=== PATIENT | female | born 1995 | race Caucasian/White ===

== ENCOUNTER 2021-12-22 08:54 | Emergency (ER) | payer OTHER, BC ==
[~2021-12-22] VITALS: Ht 160 cm; Wt 59.0 kg
[2021-12-22 09:09] VITALS: BP_SYST 124
--- NOTE | 2021-12-22 09:13 | NUR ---
Patient triaged and placed in waiting room. VSS and patient appears in no acute distress at this time. Accompanied by family, awaiting available bed, and MD notified of need for MSE.
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
--- NOTE | 2021-12-22 10:36 | NUR ---
X-Ray being done at bedside.
--- NOTE | 2021-12-22 10:50 | NUR ---
ER at bedside examining patient.
--- NOTE | 2021-12-22 11:38 | NUR ---
Pt moved to hallway . Pt denies NV, pt c/o 5/10 pain at this time. Pt is laying down bed down, bed up.
[2021-12-22] MEDS ORDERED: IBUPROFEN 800 MG TABLET PO ONE (12:00)
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
[2021-12-22 12:05] VITALS: BP_SYST 124
== END 2021-12-22 12:04 | disposition home or self-care (01) ==
LOC: SED 08:54
DX: S20.211A Contusion of right front wall of thorax, initial encounter (principal); V49.49XA Driver injured in collision with other motor vehicles in traffic accident, initial encounter; Y93.89 Activity, other specified; Y92.89 Other specified places as the place of occurrence of the external cause; Y99.8 Other external cause status
CPT/HCPCS: 71045; 81025; 99283